=== PATIENT | male | born 1975 | race Caucasian/White ===

== ENCOUNTER 2020-07-20 14:56 | Emergency (ER) | payer SELFPAY ==
[~2020-07-20] VITALS: Ht 177.8 cm; Wt 109.5 kg
[2020-07-20] MEDS ORDERED: ONDANSETRON HCL INJ 2MG/ML 2ML 2 MG/ML VIAL IV STA (15:20)
[2020-07-20] MEDS ORDERED: LISINOPRIL10 MG PO (15:26)
[2020-07-20] MEDS ORDERED: ONDANSETRON HCL INJ 2MG/ML 2ML 2 MG/ML VIAL ONE (15:52)
[2020-07-20] MEDS ORDERED: PROTONIX20 MG PO (16:42)
[2020-07-20] MEDS ORDERED: GLUCOPHAGE500 MG PO (16:42)
[2020-07-20] MEDS ORDERED: ONDANSETRON ODT4 MG PO (16:42)
[2020-07-20] MEDS ORDERED: INSULIN REGULAR, HUMAN 100 UNIT/1 ML 3ML VIAL SQ ONE (16:45)
[2020-07-20 17:06] VITALS: BP 158/80
[2020-07-20] MEDS ORDERED: INSULIN REGULAR, HUMAN 100 UNIT/1 ML 3ML VIAL ONE (17:06)
== END 2020-07-20 17:05 | disposition home or self-care (01) ==
LOC: FSED 15:16
DX: R07.9 Chest pain, unspecified (principal); R11.2 Nausea with vomiting, unspecified; R19.7 Diarrhea, unspecified; R73.9 Hyperglycemia, unspecified; I10 Essential (primary) hypertension; F17.210 Nicotine dependence, cigarettes, uncomplicated
CPT/HCPCS: 71045; 80048; 80076; 82553; 84484; 85025; 93005; 96372; 96374; 99284; J1817; J2405

== ENCOUNTER 2021-03-05 17:32 | Emergency (ER) | payer SELFPAY ==
[~2021-03-05] VITALS: Ht 177.8 cm; Wt 106.6 kg
[~2021-03-05 17:32] MED LIST: GLUCOPHAGE500 MG PO; LISINOPRIL10 MG PO; ONDANSETRON ODT4 MG PO; PROTONIX20 MG PO
[2021-03-05] MEDS ORDERED: LMX 45 G1 TOP (18:48)
== END 2021-03-05 19:38 | disposition home or self-care (01) ==
LOC: FSED 17:36
DX: D17.1 Benign lipomatous neoplasm of skin and subcutaneous tissue of trunk (principal); I10 Essential (primary) hypertension; E11.9 Type 2 diabetes mellitus without complications
CPT/HCPCS: 99282

== ENCOUNTER 2021-04-13 10:06 | Emergency (ER) | payer SELFPAY ==
[~2021-04-13] VITALS: Ht 177.8 cm; Wt 104.8 kg
[~2021-04-13 10:06] MED LIST changes: +LMX 45 G1 TOP
[2021-04-13] MEDS ORDERED: BACTRIM DS TAB1 EACH PO (10:38)
== END 2021-04-13 10:49 | disposition home or self-care (01) ==
LOC: FSED 10:28
DX: D17.1 Benign lipomatous neoplasm of skin and subcutaneous tissue of trunk (principal)
CPT/HCPCS: 99283